=== PATIENT | female | born 1940 | race Caucasian/White ===

== ENCOUNTER 2021-09-15 12:20 | Emergency (ER) | payer MEDICARE, OTHER ==
[2021-09-15 12:42] VITALS: BP 167/125; PULSE 65
[2021-09-15 13:21] LABS: ANION GAP 12.1 mEq/L (7-13); CHLORIDE,CL 106 mmol/L (98-107); ESTIMATED GFR > 60; SODIUM,NA 140 mmol/L (136-145)
== END 2021-09-15 15:02 ==
LOC: DL.ED 12:20
DX: I63.9 Cerebral infarction, unspecified (principal); E78.00 Pure hypercholesterolemia, unspecified; I10 Essential (primary) hypertension; Z86.73 Personal history of transient ischemic attack (TIA), and cerebral infarction without residual deficits; Z88.1 Allergy status to other antibiotic agents; Z88.5 Allergy status to narcotic agent; Z88.8 Allergy status to other drugs, medicaments and biological substances; Z79.82 Long term (current) use of aspirin; Z79.899 Other long term (current) drug therapy
CPT/HCPCS: 36415; 70450; 80053; 82947; 83605; 84484; 85025; 85610; 93005; 93010; 99285; 99285-25

== ENCOUNTER 2022-09-16 17:14 | Emergency (ER) | payer MEDICARE, OTHER ==
[2022-09-16 17:58] VITALS: BP 161/93; PULSE 75
[2022-09-16 19:49] LABS: ANION GAP 15.9 mEq/L (7-13)
== END 2022-09-16 20:30 | disposition home or self-care (01) ==
LOC: DL.ED 17:14
DX: R25.1 Tremor, unspecified (principal); J43.9 Emphysema, unspecified; Z88.5 Allergy status to narcotic agent; Z88.1 Allergy status to other antibiotic agents; Z88.8 Allergy status to other drugs, medicaments and biological substances; Z86.16 Personal history of COVID-19; Z86.73 Personal history of transient ischemic attack (TIA), and cerebral infarction without residual deficits
CPT/HCPCS: 36415; 70450; 80053; 81003; 82947; 83605; 83735; 84484; 85025; 85610; 93005; 93010; 99284

== ENCOUNTER 2023-10-12 09:32 | Emergency (ER) | payer MEDICARE, OTHER ==
[2023-10-12 10:05] LABS: BASOPHILS PERCENT AUTO 0.4 % (0.0-1.0); EOSINOPHILS PERCENT AUTO 1.7 % (1.0-3.0); HEMATOCRIT 40.5 % (37.0-47.0); HEMOGLOBIN 13.4 g/dL (12.0-16.0); LYMPHOCYTES PERCENT AUTO 25.1 % (20.5-50.1); MEAN CORPUSCULAR HEMOGLOBIN 32.6 pg (27.0-34.0); MEAN CORPUSCULAR HGB CONC 33.1 g/dL (33.0-35.0); MEAN CORPUSCULAR VOLUME 98.5 fL (80-100); MONOCYTES PERCENT AUTO 9.4 % (2-8); NEUTROPHILS PERCENT AUTO 63.4 % (42.2-75.2); PLATELET COUNT,PLT 161 10^3/uL (150-450); RED BLOOD CELL COUNT 4.11 10^6/uL (4.2-5.4); WHITE BLOOD CELL COUNT,WBC 4.7 10^3/uL (5.0-10.0)
[2023-10-12] MEDS: Sodium Chloride 0.9% 10 ML Syringe FLUSH PRN (10:18)
[2023-10-12 10:30] LABS: A/G RATIO 1.1; ALANINE AMINOTRANSFERASE,ALT 33 U/L (14-59); ALBUMIN 3.5 g/dL (3.4-5.0); ALKALINE PHOSPHATASE 60 U/L (46-116); ANION GAP 12.1 mEq/L (7-13); ASPARTATE AMNIOTRANSFERASE,AST 26 U/L (15-37); BLOOD UREA NITROGEN,BUN 14 mg/dL (7-18); BUN/CREATININE RATIO 19.4 (No establ ref range); CALCIUM 8.9 mg/dL (8.5-10.1); CARBON DIOXIDE,CO2 30 mmol/L (21-32); CHLORIDE,CL 106 mmol/L (98-107); CREATININE 0.72 mg/dL (0.55-1.02); EST CRCL DRUG DOSING (CG) 36.41 mL/min; ESTIMATED GFR 82 mL/min (>=60); GLUCOSE RANDOM 97 mg/dL (70-99); POTASSIUM,K 4.1 mmol/L (3.5-5.1); PROTEIN TOTAL,TP 6.6 g/dL (6.4-8.2); SODIUM,NA 144 mmol/L (136-145)
[2023-10-12 10:31] LABS: C-REACTIVE PROTEIN < 0.50 ng/dL (<=0.50)
[2023-10-12 10:44] LABS: APPEARANCE,URINE CLEAR (CLEAR); BILIRUBIN,URINE NEGATIVE (NEGATIVE); COLOR,URINE YELLOW (YELLOW); GLUCOSE,URINE NEGATIVE (NEGATIVE); KETONES,URINE NEGATIVE (NEGATIVE); LEUKOCYTE ESTERASE,URINE NEGATIVE (NEGATIVE); NITRITE,URINE NEGATIVE (NEGATIVE); OCCULT BLOOD,URINE NEGATIVE (NEGATIVE); PROTEIN,URINE NEGATIVE (NEGATIVE); UROBILINOGEN,URINE 0.2 mg/dL (0.2-1.0)
[2023-10-12 10:44] LABS: CORONAVIRUS COVID-19 NAA NEGATIVE (NEGATIVE); INFLUENZA A NAA NEGATIVE (NEGATIVE); INFLUENZA B NAA NEGATIVE (NEGATIVE); RESPIRATORY SYNCYTIAL VIR NAA NEGATIVE (NEGATIVE)
[2023-10-12 11:55] VITALS: BP 130/75; PULSE 60
== END 2023-10-12 11:50 | disposition home or self-care (01) ==
LOC: DL.ED 09:32
DX: R53.1 Weakness (principal); E46 Unspecified protein-calorie malnutrition; R62.7 Adult failure to thrive; E78.00 Pure hypercholesterolemia, unspecified; I10 Essential (primary) hypertension; J44.9 Chronic obstructive pulmonary disease, unspecified; F17.210 Nicotine dependence, cigarettes, uncomplicated; Z88.8 Allergy status to other drugs, medicaments and biological substances; Z88.1 Allergy status to other antibiotic agents; Z88.6 Allergy status to analgesic agent; Z90.710 Acquired absence of both cervix and uterus; Z86.73 Personal history of transient ischemic attack (TIA), and cerebral infarction without residual deficits
CPT/HCPCS: 0241U; 36415; 71045; 80053; 81003; 83605; 84145; 84484; 85025; 86140; 93005; 93010; 99285; J3490

== ENCOUNTER 2024-09-03 11:57 | Emergency (ER) | payer MEDICARE, OTHER ==
[2024-09-03] MEDS ORDERED: Sodium Chloride 0.9% 10 ML Syringe FLUSH PRN (12:55)
[2024-09-03] MEDS ORDERED: Pantoprazole 40 MG in Sodium Chloride 0.9% 100 ML IV SCH (13:00)
[2024-09-03 13:13] LABS: BASOPHILS PERCENT AUTO 0.6 % (0.0-1.0); EOSINOPHILS PERCENT AUTO 1.4 % (1.0-3.0); HEMOGLOBIN 13.9 g/dL (12.0-16.0); LYMPHOCYTES PERCENT AUTO 26.7 % (20.5-50.1); MEAN CORPUSCULAR HEMOGLOBIN 32.3 pg (27.0-34.0); MEAN CORPUSCULAR HGB CONC 33.1 g/dL (33.0-35.0); MEAN CORPUSCULAR VOLUME 97.7 fL (80-100); MONOCYTES PERCENT AUTO 8.6 % (2-8); NEUTROPHILS PERCENT AUTO 62.7 % (42.2-75.2); PLATELET COUNT,PLT 153 10^3/uL (150-450); WHITE BLOOD CELL COUNT,WBC 5.1 10^3/uL (5.0-10.0)
[2024-09-03 13:32] LABS: A/G RATIO 1.1; ALBUMIN 3.6 g/dL (3.4-5.0); BILIRUBIN TOTAL 1.3 mg/dL (0.2-1.0); BUN/CREATININE RATIO 21.8 (No establ ref range); CALCIUM 9.5 mg/dL (8.5-10.1); CREATININE 0.78 mg/dL (0.55-1.02); EST CRCL DRUG DOSING (CG) 31.25 mL/min; PROTEIN TOTAL,TP 6.9 g/dL (6.4-8.2)
[2024-09-03 13:36] LABS: POTASSIUM,K 4.2 mmol/L (3.5-5.1)
[2024-09-03 13:41] LABS: ANION GAP 12.2 mEq/L (7-13)
[2024-09-03] MEDS: Aluminum Hydroxide/Magnesium Hydroxide/Simethicone Susp 30 ML Cup PO ONE (13:42)
[2024-09-03] MEDS: Sodium Chloride 0.9% 500 ML IV SCH (13:45)
[2024-09-03] MEDS: Pantoprazole 40 MG Vial IVPUSH ONE (13:46)
[2024-09-03] MEDS: Ketorolac 30 MG/ML SDV IVPUSH ONE (15:29)
[2024-09-03 15:45] LABS: APPEARANCE,URINE CLEAR (CLEAR); BILIRUBIN,URINE NEGATIVE (NEGATIVE); COLOR,URINE YELLOW (YELLOW); GLUCOSE,URINE NEGATIVE (NEGATIVE); KETONES,URINE NEGATIVE (NEGATIVE); LEUKOCYTE ESTERASE,URINE NEGATIVE (NEGATIVE); NITRITE,URINE NEGATIVE (NEGATIVE); OCCULT BLOOD,URINE NEGATIVE (NEGATIVE); PH,URINE 6.5 (5.0-9.0); PROTEIN,URINE NEGATIVE (NEGATIVE); UROBILINOGEN,URINE 0.2 mg/dL (0.2-1.0)
[2024-09-03 17:45] LABS: BACTERIA,URINE FEW /HPF (0-FEW/HPF); EPITHELIAL CELLS,URINE FEW /HPF (NOT SEEN); MUCUS,URINE FEW /LPF (NOT SEEN); RBC,URINE 0-5 /HPF (0-5); WBC,URINE 0-5 /HPF (0-5/HPF)
[2024-09-03 19:39] VITALS: BP 164/87; PULSE 60
== END 2024-09-03 16:15 | disposition home or self-care (01) ==
LOC: DL.ED 11:57
DX: M26.622 Arthralgia of left temporomandibular joint (principal); I10 Essential (primary) hypertension; K21.9 Gastro-esophageal reflux disease without esophagitis; E78.00 Pure hypercholesterolemia, unspecified; Z88.8 Allergy status to other drugs, medicaments and biological substances; Z88.1 Allergy status to other antibiotic agents; Z88.5 Allergy status to narcotic agent; Z79.02 Long term (current) use of antithrombotics/antiplatelets; Z79.811 Long term (current) use of aromatase inhibitors; Z79.899 Other long term (current) drug therapy; Z90.49 Acquired absence of other specified parts of digestive tract
CPT/HCPCS: 36415; 70450; 80053; 81001; 85025; 96374; 96375; 99284; A9270; J1885; J2470; J7040

== ENCOUNTER 2025-04-09 08:26 | Emergency (ER) | payer MEDICARE, OTHER ==
[2025-04-09 11:39] LABS: APPEARANCE,URINE CLEAR (CLEAR); GLUCOSE,URINE NEGATIVE (NEGATIVE); OCCULT BLOOD,URINE TRACE-INTACT (NEGATIVE)
[2025-04-09 12:34] LABS: EPITHELIAL CELLS,URINE RARE /HPF (NOT SEEN)
[2025-04-09] MEDS: Methylnaltrexone 12 MG/0.6 ML SDV SUBCUT ONE (12:36)
[2025-04-09] MEDS: Lactulose Soln 10 GM/15 ML 30 ML UD Cup PO ONE (12:36)
[2025-04-09] MEDS ORDERED: Sodium Chloride 0.9% 10 ML Syringe FLUSH PRN (12:47)
[2025-04-09] MEDS: Ketorolac 30 MG/ML SDV IVPUSH ONE (13:04)
[2025-04-09 13:06] LABS: BASOPHILS PERCENT AUTO 0.3 % (0.0-1.0); EOSINOPHILS PERCENT AUTO 0.1 % (1.0-3.0); LYMPHOCYTES PERCENT AUTO 8.2 % (20.5-50.1); MONOCYTES PERCENT AUTO 6.1 % (2-8); NEUTROPHILS PERCENT AUTO 85.3 % (42.2-75.2); PLATELET COUNT,PLT 142 10^3/uL (150-450); RED BLOOD CELL COUNT 4.22 10^6/uL (4.2-5.4); WHITE BLOOD CELL COUNT,WBC 7.7 10^3/uL (5.0-10.0)
[2025-04-09 13:50] LABS: A/G RATIO 1.0; ALANINE AMINOTRANSFERASE,ALT 30.0 U/L (14-59); ASPARTATE AMNIOTRANSFERASE,AST 25.0 U/L (15-37); BILIRUBIN TOTAL 1.7 mg/dL (0.2-1.0); BLOOD UREA NITROGEN,BUN 11.0 mg/dL (7-18); CARBON DIOXIDE,CO2 31.0 mmol/L (21-32); CHLORIDE,CL 99.0 mmol/L (98-107); CREATININE 0.69 mg/dL (0.55-1.02); EST CRCL DRUG DOSING (CG) 30.38 mL/min; GLUCOSE RANDOM 137.0 mg/dL (70-99); POTASSIUM,K 3.6 mmol/L (3.5-5.1); PROTEIN TOTAL,TP 7.8 g/dL (6.4-8.2); SODIUM,NA 139.0 mmol/L (136-145)
[2025-04-09 13:52] LABS: ESTIMATED GFR 84.0 mL/min (>=60)
[2025-04-09 14:08] VITALS: BP 181/149; PULSE 84
== END 2025-04-09 14:07 | disposition home or self-care (01) ==
LOC: DL.ED 08:26
DX: K59.00 Constipation, unspecified (principal); G89.29 Other chronic pain; I10 Essential (primary) hypertension; F17.200 Nicotine dependence, unspecified, uncomplicated; E78.00 Pure hypercholesterolemia, unspecified; Z79.899 Other long term (current) drug therapy; Z86.73 Personal history of transient ischemic attack (TIA), and cerebral infarction without residual deficits; Z90.49 Acquired absence of other specified parts of digestive tract; Z88.1 Allergy status to other antibiotic agents; Z88.5 Allergy status to narcotic agent; Z88.8 Allergy status to other drugs, medicaments and biological substances; Z98.49 Cataract extraction status, unspecified eye
CPT/HCPCS: 36415; 74018; 80053; 81001; 83735; 85025; 86140; 96374; 99283; 99284; A9270; J1885

== ENCOUNTER 2025-04-20 15:22 | Observation (INO) | payer MEDICARE, OTHER ==
[2025-04-20] MEDS ORDERED: Sodium Chloride 0.9% 10 ML Syringe FLUSH PRN (16:21)
[2025-04-20] MEDS ORDERED: Ondansetron 4 MG/2 ML SDV IVPUSH PRN (16:21)
[2025-04-20] MEDS ORDERED: Sennosides/Docusate Sodium 50-8.6 MG Tab PO PRN (16:21)
[2025-04-20] MEDS ORDERED: Metoprolol Tartrate 5 MG/5 ML SDV IVPUSH PRN (16:28)
[2025-04-20] MEDS ORDERED: hydrALAZINE 20 MG/ML SDV IVPUSH PRN (16:28)
[2025-04-20] MEDS ORDERED: Aluminum Hydroxide/Magnesium Hydroxide/Simethicone Susp 30 ML Cup PO PRN (17:20)
[2025-04-20 17:37] LABS: T4 FREE 1.38 ng/dL (0.76-1.46); TSH ULTRASENSITIVE 1.3 uIU/mL (0.36-3.74)
[2025-04-20 18:20] LABS: APPEARANCE,URINE CLEAR (CLEAR); GLUCOSE,URINE NEGATIVE (NEGATIVE); OCCULT BLOOD,URINE NEGATIVE (NEGATIVE)
[2025-04-20] MEDS: MVI, Adult with Vitamin K 10 ML, Folic Acid 1 MG, Thiamine 100 MG in Lactated Ringers 1... IV ONE (18:28)
[2025-04-20 18:29] LABS: EPITHELIAL CELLS,URINE MODERATE /HPF (NOT SEEN)
[2025-04-20] MEDS: Potassium Chloride 20 MEQ in Premix Bag 1 BAG IV ONE (18:29)
[2025-04-20] MEDS: Sodium Chloride 0.9% 10 ML Syringe FLUSH SCH (20:00)
[2025-04-20 21:04] LABS: CORONAVIRUS COVID-19 NAA NEGATIVE (NEGATIVE); INFLUENZA A NAA NEGATIVE (NEGATIVE); INFLUENZA B NAA NEGATIVE (NEGATIVE); RESPIRATORY SYNCYTIAL VIR NAA NEGATIVE (NEGATIVE)
[2025-04-21] MEDS: Ketorolac 30 MG/ML SDV IVPUSH PRN (01:26)
[2025-04-21 06:34] LABS: BASOPHILS PERCENT AUTO 0.4 % (0.0-1.0); EOSINOPHILS PERCENT AUTO 1.2 % (1.0-3.0); LYMPHOCYTES PERCENT AUTO 28.8 % (20.5-50.1); MONOCYTES PERCENT AUTO 10.4 % (2-8); NEUTROPHILS PERCENT AUTO 59.2 % (42.2-75.2); PLATELET COUNT,PLT 152 10^3/uL (150-450); RED BLOOD CELL COUNT 3.69 10^6/uL (4.2-5.4); WHITE BLOOD CELL COUNT,WBC 5.2 10^3/uL (5.0-10.0)
[2025-04-21 07:09] LABS: ALANINE AMINOTRANSFERASE,ALT 23.0 U/L (14-59); ASPARTATE AMNIOTRANSFERASE,AST 25.0 U/L (15-37); BILIRUBIN TOTAL 0.8 mg/dL (0.2-1.0); BLOOD UREA NITROGEN,BUN 13.0 mg/dL (7-18); CARBON DIOXIDE,CO2 29.0 mmol/L (21-32); CHLORIDE,CL 109.0 mmol/L (98-107); CREATININE 0.55 mg/dL (0.55-1.02); EST CRCL DRUG DOSING (CG) 35.24 mL/min; GLUCOSE RANDOM 88.0 mg/dL (70-99); POTASSIUM,K 3.5 mmol/L (3.5-5.1); PROTEIN TOTAL,TP 6.3 g/dL (6.4-8.2); SODIUM,NA 147.0 mmol/L (136-145)
[2025-04-21 07:10] LABS: A/G RATIO 1.1; ESTIMATED GFR 89.0 mL/min (>=60)
[2025-04-21] MEDS: Multivitamins with Iron/Calcium/Folic Acid/Minerals Tab PO SCH (20:33)
[2025-04-21] MEDS: Remove Patch LIDOCAINE TRDERM SCH (20:40)
[2025-04-22 05:40] LABS: BASOPHILS PERCENT AUTO 0.4 % (0.0-1.0); EOSINOPHILS PERCENT AUTO 1.1 % (1.0-3.0); LYMPHOCYTES PERCENT AUTO 27.1 % (20.5-50.1); MONOCYTES PERCENT AUTO 9.6 % (2-8); NEUTROPHILS PERCENT AUTO 61.8 % (42.2-75.2); PLATELET COUNT,PLT 161 10^3/uL (150-450); RED BLOOD CELL COUNT 3.97 10^6/uL (4.2-5.4); WHITE BLOOD CELL COUNT,WBC 5.5 10^3/uL (5.0-10.0)
[2025-04-22 06:02] LABS: ALANINE AMINOTRANSFERASE,ALT 22.0 U/L (14-59); ASPARTATE AMNIOTRANSFERASE,AST 22.0 U/L (15-37); BILIRUBIN TOTAL 0.5 mg/dL (0.2-1.0); BLOOD UREA NITROGEN,BUN 18.0 mg/dL (7-18); CARBON DIOXIDE,CO2 31.0 mmol/L (21-32); CHLORIDE,CL 107.0 mmol/L (98-107); CREATININE 0.5 mg/dL (0.55-1.02); EST CRCL DRUG DOSING (CG) 38.77 mL/min; GLUCOSE RANDOM 112.0 mg/dL (70-99); POTASSIUM,K 3.4 mmol/L (3.5-5.1); PROTEIN TOTAL,TP 6.5 g/dL (6.4-8.2); SODIUM,NA 144.0 mmol/L (136-145)
[2025-04-22 06:05] LABS: A/G RATIO 1.03; ESTIMATED GFR 91.0 mL/min (>=60)
[2025-04-22] MEDS: Potassium Chloride 10 MEQ Tab.ER PO ONE (12:15)
[2025-04-23] MEDS: Magnesium Hydroxide 400 MG/5 ML Susp 30 ML Cup PO PRN (17:06)
[2025-04-24 10:14] LABS: BLOOD UREA NITROGEN,BUN 25.0 mg/dL (7-18); CARBON DIOXIDE,CO2 31.0 mmol/L (21-32); CHLORIDE,CL 107.0 mmol/L (98-107); CREATININE 0.72 mg/dL (0.55-1.02); EST CRCL DRUG DOSING (CG) 26.92 mL/min; ESTIMATED GFR 81.0 mL/min (>=60); GLUCOSE RANDOM 120.0 mg/dL (70-99); POTASSIUM,K 4.0 mmol/L (3.5-5.1); SODIUM,NA 147.0 mmol/L (136-145)
[2025-04-25] MEDS: FLU (Fluad Triv) 25-26 (65UP)/MF59C/PF 45 MCG/0.5 ML Syringe IM ONE (15:49)
[2025-04-25 16:18] VITALS: BP 117/67; PULSE 83
== END 2025-04-25 18:25 | disposition home or self-care (01) ==
LOC: DL.MS 15:22 → UNDOADMOB 15:22 → INTOOBSV 15:23 → DL.MS 15:23 → UNDOADMOB 15:23 → DL.MS 17:21
PROVIDERS: ADMIT Internal Medicine; ATTEND Internal Medicine
DX: R62.7 Adult failure to thrive (principal); R73.9 Hyperglycemia, unspecified; I10 Essential (primary) hypertension; K57.30 Diverticulosis of large intestine without perforation or abscess without bleeding; E78.00 Pure hypercholesterolemia, unspecified; Z88.8 Allergy status to other drugs, medicaments and biological substances; Z88.5 Allergy status to narcotic agent; Z88.6 Allergy status to analgesic agent; Z79.899 Other long term (current) drug therapy
CPT/HCPCS: 36415; 74018; 80048; 80053; 81001; 82306; 83735; 84439; 84443; 85025; 85651; 86140; 87637; 90653; 97161; 97530; A9270; G0008; J1808; J1885; J3411; J3480; J7120; 96365; 96366; 96367; 96368; 96375; G0378; J3490